=== PATIENT | female | born 1970 | race Caucasian/White ===

== ENCOUNTER 2017-10-15 09:01 | Day surgery (SDC) | payer OTHER ==
[~2017-10-15] VITALS: Ht 172.7 cm; Wt 87.1 kg
[2017-10-15 09:29] VITALS: BP 121/65
[2017-10-15 16:42] VITALS: BP 129/61
[2017-10-15 16:48] VITALS: BP 131/70
[2017-10-15 18:35] VITALS: BP 128/70
== END 2017-10-15 18:40 | disposition home or self-care (01) ==
LOC: SDC 09:01
DX: N92.0 Excessive and frequent menstruation with regular cycle (principal)
CPT/HCPCS: 88307; J0690; J1170; J1885; J2250; J2405; J2550; J2765; J3010